=== PATIENT | female | born 1990 | race Two or more races ===

== ENCOUNTER 2019-01-12 09:57 | Outpatient (CLI) | payer OTHER | END 2019-01-12 11:00 | disposition home or self-care (01) | LOC: PRENATAL 09:57 | DX: O99.89 Other specified diseases and conditions complicating pregnancy, childbirth and the puerperium (principal) ==

== ENCOUNTER → 2019-03-09 | Outpatient (CLI) | payer OTHER | END | disposition home or self-care (01) | LOC: PRENATAL 10:55 | DX: O35.3XX0 Maternal care for (suspected) damage to fetus from viral disease in mother, not applicable or unspecified (principal); O09.212 Supervision of pregnancy with history of pre-term labor, second trimester ==

== ENCOUNTER 2019-06-06 01:47 | Outpatient (CLI) | payer OTHER ==
[2019-06-06] MEDS ORDERED: PRENATAL CAPLE1 EAC1 PO (02:02)
[2019-06-06] MEDS ORDERED: IRON325 MG PO (02:02)
== END 2019-06-06 11:30 | disposition home or self-care (01) ==
LOC: OBS/DEL 01:47
DX: O26.893 Other specified pregnancy related conditions, third trimester (principal); R00.0 Tachycardia, unspecified; R06.02 Shortness of breath; O99.013 Anemia complicating pregnancy, third trimester; D64.89 Other specified anemias

== ENCOUNTER 2019-07-19 07:18 | Inpatient (IN) | payer OTHER ==
[~2019-07-19] VITALS: Ht 160 cm; Wt 2.7 kg
[~2019-07-19 07:18] MED LIST: IRON325 MG PO; PRENATAL CAPLE1 EAC1 PO
== END 2019-07-22 14:01 | disposition home or self-care (01) | DRG 788 ==
LOC: OB/GYN 07:18 → LDR 07:18 → O/R 15:00 → OB/GYN 15:11
PROVIDERS: ADMIT Obstetrics & Gynecology
PROC: 4A1HXCZ Monitoring of Products of Conception, Cardiac Rate, External Approach (ICD-10-PCS; 2019-07-19)
PROC: 10D00Z1 Extraction of Products of Conception, Low, Open Approach (ICD-10-PCS; principal; 2019-07-19 15:45)
DX: O82 Encounter for cesarean delivery without indication (principal); O64.1XX0 Obstructed labor due to breech presentation, not applicable or unspecified; Z3A.39 39 weeks gestation of pregnancy; Z37.0 Single live birth

== ENCOUNTER 2022-11-18 09:59 | Outpatient (CLI) | payer OTHER | END 2022-11-18 11:15 | disposition home or self-care (01) | LOC: PRENATAL 09:59 | PROVIDERS: ATTEND Obstetrics & Gynecology Maternal & Fetal Medicine | DX: O35.9XX0 Maternal care for (suspected) fetal abnormality and damage, unspecified, not applicable or unspecified (principal); O35.3XX0 Maternal care for (suspected) damage to fetus from viral disease in mother, not applicable or unspecified; O34.219 Maternal care for unspecified type scar from previous cesarean delivery; Z3A.19 19 weeks gestation of pregnancy ==

== ENCOUNTER 2023-02-11 14:07 | Outpatient (CLI) | payer OTHER | END 2023-02-11 16:48 | disposition home or self-care (01) | LOC: PRENATAL 14:07 | PROVIDERS: ATTEND Obstetrics & Gynecology Maternal & Fetal Medicine | DX: O26.849 Uterine size-date discrepancy, unspecified trimester (principal); O36.8199 Decreased fetal movements, unspecified trimester, other fetus; O34.219 Maternal care for unspecified type scar from previous cesarean delivery; Z3A.32 32 weeks gestation of pregnancy ==

== ENCOUNTER 2023-03-26 09:54 | Inpatient (IN) | payer OTHER ==
[~2023-03-26] VITALS: Ht 160 cm; Wt 97.5 kg
[2023-03-26 10:58] LABS: HEMATOCRIT 31.2 % (36.0-45.00); HEMOGLOBIN 10.7 g/dL (12.0-15.00); MEAN CELL VOLUME 84.5 fL (80.00-100.00); MEAN CORPUSCULAR HEMOGLOBIN 28.9 pg (27.00-32.0); MEAN CORPUSCULAR HGB CONC 34.3 g/dl (32.0-36.0); PLATELET COUNT 250 K/uL (150-450); RED BLOOD COUNT 3.69 M/uL (4.00-6.00); RED CELL DISTRIBUTION WIDTH 14.4 % (11.5-14.5)
[2023-03-26 11:09] LABS: URINE APPEARANCE Clear; URINE BILIRRUBIN Negative (NEGATIVE); URINE BLOOD Negative; URINE COLOR Yellow; URINE GLUCOSE Negative (NEGATIVE); URINE LEUKOCYTE Trace; URINE NITRATE Negative; URINE PROTEIN Trace (NEGATIVE)
[2023-03-26 11:13] LABS: URINE BACTERIA 1767.6 uL (0.0-1933); URINE EPITHELIAL CELLS 73.5 uL (0.0-38.8); URINE RBC 3.7 uL (0.0-20.8); URINE WBC 79.1 uL (0.0-23.2)
[2023-03-26 11:19] LABS: CALCIUM 9.2 mg/dL (8.5-10.1); CREATININE SERUM 0.46 mg/dL (0.55-1.02); GFR 159.5; POTASSIUM 4.07 mEq/L (3.5-5.1)
[2023-03-26 11:23] LABS: INR < 0.93; PARTIAL THROMBOPLASTIN TIME 25.6 SECONDS (22.0-34.0); PROTHROMBIN TIME 9.8 SECONDS (9.0-11.5)
[2023-04-04 15:09] LABS: ABG pCO2 46.7 mmHg (35-45); BASE EXCESS -9.7 mmol/l; BICARBONATE 18.2 mmol/l (23-25); SaO2 25.7 %; Tco2 19.6 mmol/l
[2023-04-04 15:11] LABS: ABG PH 7.208 (7.35-7.45); ABG PO2 22.8 mmHg (80-100); o2 21 %
[2023-04-04 17:09] LABS: HEMATOCRIT 32.4 % (36.0-45.00); HEMOGLOBIN 10.7 g/dL (12.0-15.00); MEAN CELL VOLUME 84.9 fL (80.00-100.00); MEAN CORPUSCULAR HEMOGLOBIN 27.9 pg (27.00-32.0); MEAN CORPUSCULAR HGB CONC 32.9 g/dl (32.0-36.0); PLATELET COUNT 257 K/uL (150-450); RED BLOOD COUNT 3.81 M/uL (4.00-6.00); RED CELL DISTRIBUTION WIDTH 14.1 % (11.5-14.5)
== END 2023-04-07 17:11 | disposition home or self-care (01) | DRG 788 ==
LOC: O/R 04-04 07:09 → LDR 04-04 08:15 → OB/GYN 04-04 15:02
PROVIDERS: ADMIT Obstetrics & Gynecology; ATTEND Obstetrics & Gynecology
PROC: 4A1HXCZ Monitoring of Products of Conception, Cardiac Rate, External Approach (ICD-10-PCS; 2023-04-04)
PROC: 10D00Z1 Extraction of Products of Conception, Low, Open Approach (ICD-10-PCS; principal; 2023-04-04 08:15)
DX: O34.211 Maternal care for low transverse scar from previous cesarean delivery (principal); Z3A.39 39 weeks gestation of pregnancy; Z37.0 Single live birth; Z20.822 Contact with and (suspected) exposure to COVID-19